=== PATIENT | male | born 1970 | race Caucasian/White ===

== ENCOUNTER 2020-12-24 18:54 | Emergency (ER) | payer MEDICARE, SELFPAY ==
[2020-12-24 19:02] VITALS: BP 189/112; PULSE 102; RESP 16; TEMP 37.4; O2SAT 93; BMI 27.8
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
--- NOTE | 2020-12-24 20:00 | PC.NURSE ---
Patient c/o increase pain since xrays, aware.
[2020-12-24 20:12] VITALS: BP 158/105; PULSE 93; RESP 16
--- NOTE | 2020-12-24 20:15 | PC.NURSE ---
CHU miller MD notified.
--- NOTE | 2020-12-24 20:45 | PC.NURSE ---
Patient stated that he was waiting 5 more minutes and was leaving. Explained to patient that MD was waiting on xray reading.
[2020-12-24 21:00] VITALS: BP 140/70; PULSE 80; RESP 16; TEMP 36.7; O2SAT 100
--- NOTE | 2020-12-24 21:38 | PC.NURSE ---
pt IV was infiltrated. i removed the old one and attempted to look for another. pt requested an iv in the leg. we were waiting for the scans to come back and pt left AMA because of the wait time.
== END 2020-12-24 21:00 | disposition left against medical advice (07) ==
PROVIDERS: Emergency Provider Emergency Medicine; PCP Nurse Practitioner Family
DX: S43.015A Anterior dislocation of left humerus, initial encounter (principal); V48.0XXA Car driver injured in noncollision transport accident in nontraffic accident, initial encounter; Y92.488 Other paved roadways as the place of occurrence of the external cause
CPT/HCPCS: 73030; 96365; 96375; 99282; J2405

== ENCOUNTER 2021-02-10 19:30 | Emergency (ER) | payer MEDICARE, MEDICAID, SELFPAY ==
[2021-02-10 19:33] VITALS: BP 126/93; PULSE 92; RESP 16; TEMP 36.8; O2SAT 96; BMI 27.8
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
[2021-02-10 19:49] VITALS: BMI 27.8
[2021-02-10 20:26] LABS: Chloride 106 mmol/L (98-107); Potassium 3.9 mmoL/L (3.5-5.1); Sodium 140 mmol/L (136-145)
[2021-02-10 20:29] LABS: Anion Gap 16.9 mEq/L (5-15); Blood Urea Nitrogen 10 mg/dl (9-20); Carbon Dioxide 21 mmol/L (22.0-30.0); Creatinine Clearance Estimated 162 mL/min (50-200); Estimated Glomerular Filt Rate 119 ml/min (>60); GFR (African American) 144 ML/MIN (>60)
[2021-02-10 20:30] VITALS: BP 149/94; PULSE 89; O2SAT 93
[2021-02-10 20:30] LABS: Calcium 9.5 mg/dl (8.4-10.2); Glucose 106 mg/dl (74-100)
[2021-02-10 20:31] LABS: Basophils # 0.1 K/mm3 (0-0.2); Basophils % 0.9 % (0.1-2.0); Eosinophils # 0.3 K/mm3 (0.0-0.4); Eosinophils % 2.6 % (0.1-12.0); Hematocrit 50.7 % (42.0-52.0); Hemoglobin 17.5 g/dL (14.1-18.0); Lymphocytes # 2.6 K/mm3 (0.7-4.5); Lymphocytes % 24.3 % (10-50); Mean Corpuscular HGB Conc 34.4 g/dL (31.8-35.4); Mean Corpuscular Hemoglobin 31.4 pg (27.0-31.2); Mean Corpuscular Volume 91.2 fl (80-94); Mean Platelet Volume 8.5 fl (7.4-10.4); Monocytes # 0.6 K/mm3 (0.1-1.0); Monocytes % 5.5 % (1.7-9.3); Neutrophils % 66.6 % (37.0-80.0); Platelet Count 267 K/mm3 (142-424); Red Blood Count 5.55 M/mm3 (4.60-6.20); Red Cell Distribution Width 13.5 % (11.5-17.5); White Blood Count 10.5 K/mm3 (4.8-10.8)
--- NOTE | 2021-02-10 20:55 | XR_ITS ---
PROCEDURE INFORMATION: Exam: XR Left Shoulder Exam date and time: 02/10/2021 8:55 PM Age: 51 years old Clinical indication: Injury or trauma; Fall; Blunt trauma (contusions or hematomas); Shoulder; Left; Injury date: 02/10/2021; Additional info: Post reduction left shoulder xrays TECHNIQUE: Imaging protocol: XR Left shoulder. Views: 1 view. COMPARISON: CR XR SHOULDER LT MIN 2V 02/10/2021 7:59 PM FINDINGS: Bones/joints: Successful interval reduction of the previously demonstrated glenohumeral joint dislocation. No displaced fracture fragment. Mild AC joint and glenohumeral joint degenerative changes. Soft tissues: Normal. IMPRESSION: Interval reduction of prior glenohumeral joint dislocation.
[2021-02-10 21:01] VITALS: BP 148/111; PULSE 104; O2SAT 95
[2021-02-10 21:54] VITALS: BP 147/99; PULSE 90; RESP 16; TEMP 36.8; O2SAT 99
--- NOTE | 2021-02-11 00:58 | HMH.EDGENADL ---
ED Disposition Clinical Impression: Recurrent dislocation, left shoulder Dislocation of left shoulder joint Qualifiers: Encounter type: initial encounter Qualified Code(s): S43.005A - Unspecified dislocation of left shoulder joint, initial encounter Left shoulder pain Qualifiers: Chronicity: acute Qualified Code(s): M25.512 - Pain in left shoulder Disposition: Home, Self-Care Condition on Discharge: Good Additional Instructions: Please continue supportive care at home including ibuprofen and tylenol for pain and swelling. Continue range of motion exercises as tolerated. Please follow up with an lead sustainability specialist outpatient. If your condition worsens or other concerns arise, please return to the emergency department. Referrals: Murali Maravilla MD [Staff Physician] - Provider,MD Deshawn [Primary Care Provider] - - Critical Care Critical Care Time: No Attestation: On 02/10/21, the high probability of a clinically significant, sudden or life threatening deterioration of the following system(s) required my full and direct attention, intervention and personal management. The time I documented below is in addition to time spent performing reported procedures but includes the following listed in this critical care notation. Medical Decision Making - Medical Records Medical records reviewed: Yes: I reviewed the patient's medical records. - Timur Inquiry Pt receiving controlled substance: Yes (Treatment for acute pain in ED. ) Timur was queried for this patient: No Risks and benefits of using a controlled substance: were not discussed with pt by me (Indication: Severe acute pain.) Vital Signs: 02/10/21 19:33 02/10/21 20:30 02/10/21 21:01 Temperature 98.3 F Temperature Source Oral Pulse Rate 89 104 H Pulse Rate [Right] 92 H Respiratory Rate 16 Blood Pressure 149/94 H 148/111 H Blood Pressure [Right Arm] 126/93 H Blood Pressure Mean 134 Blood Pressure Mean [Right Arm] 104 02 Sat by Pulse Oximetry 96 93 L 95 Oxygen Delivery Method Room Air 02/10/21 21:54 Temperature 98.3 F Temperature Source Pulse Rate 90 Pulse Rate [Right] Respiratory Rate 16 Blood Pressure 147/99 H Blood Pressure [Right Arm] Blood Pressure Mean Blood Pressure Mean [Right Arm] 02 Sat by Pulse Oximetry Oxygen Delivery Method Room Air - Lab Data Lab Results 02/10/21 19:58: WBC 10.5, RBC 5.55, Hgb 17.5, Hct 50.7, MCV 91.2, MCH 31.4 H, MCHC 34.4, RDW 13.5, Plt Count 267, MPV 8.5, Neut % (Auto) 66.6, Lymph % (Auto) 24.3, [place] % (Auto) 5.5, Eos % (Auto) 2.6, Baso % (Auto) 0.9, Neut # (Auto) 7.0, Lymph # (Auto) 2.6, [place] # (Auto) 0.6, Eos # (Auto) 0.3, Baso # (Auto) 0.1 02/10/21 19:58: Sodium 140, Potassium 3.9, Chloride 106, Carbon Dioxide 21 L, Anion Gap 16.9 H, BUN 10, Creatinine 0.70, Estimated Creat Clear 162, Estimated GFR 119, Est GFR ( Amer) 144, Glucose 106 H, Calcium 9.5 Result diagrams: 02/10/21 19:58 02/10/21 19:58 Orders (Tests/Meds): ED MEDICATIONS Discontinued Medications Generic Name Dose Route Start Last Admin Trade Name Alba PRN Reason Stop Dose Admin Acetaminophen 1,000 mg 02/10/21 20:34 02/10/21 20:42 Acetaminophen 500mg Tab PO 02/10/21 20:35 1,000 mg ONCE ONE Administration Diazepam 5 mg 02/10/21 21:04 02/10/21 21:05 Diazepam 10mg/2ml Syringe IV 02/10/21 21:05 5 mg ONCE ONE Administration Hydromorphone HCl 1 mg 02/10/21 19:54 02/10/21 19:56 Hydromorphone 2mg/Ml Syringe IV 02/10/21 19:55 1 mg ONCE ONE Administration Ketamine HCl 25 mg 02/10/21 20:35 02/10/21 20:43 Ketamine 500mg/10ml Vial IV 02/10/21 20:36 25 mg ONCE ONE Administration Methocarbamol 500 mg 02/10/21 21:00 Methocarbamol 500mg Tablet PO 03/12/21 20:59 BID GINNY Methocarbamol 500 mg 02/10/21 20:42 02/10/21 20:42 Methocarbamol 500mg Tablet PO 02/10/21 20:43 500 mg ONCE ONE Administration Morphine Sulfate 4 mg 02/10/21 19:
== END 2021-02-10 21:55 | disposition home or self-care (01) ==
PROVIDERS: Emergency Medicine; Emergency Provider Emergency Medicine
DX: S43.005A Unspecified dislocation of left shoulder joint, initial encounter (principal); W17.89XA Other fall from one level to another, initial encounter; Y92.89 Other specified places as the place of occurrence of the external cause; F17.210 Nicotine dependence, cigarettes, uncomplicated
CPT/HCPCS: 73020; 73030; 80048; 85025; 96374; 96375; 99282; J2405